=== PATIENT | male | born 1945 | race Caucasian/White ===

== ENCOUNTER → 2017-06-06 | Outpatient (CLI) | payer MEDICARE ==
[~2017-06-06] MED LIST: CIPRO 500MG TA500 MG PO; LANOXIN 0.25M0.25 MG PO; METRONIDAZOLE500 MG PO; NORCO 325 MG-51 TAB PO; NORCO 325 MG-7.1 TAB PO; ROXICODONE 55 MG/TAB PO; ULTRAM 50MG TAB50 MG PO; UROXATRAL10 M1 PO; VICODIN 5/5001 UDTAB PO; ZOFRAN4 M1 PO
== END ==
LOC: COL.RAD 14:16
DX: M25.552 Pain in left hip (principal)
CPT/HCPCS: J3301; Q9967

== ENCOUNTER → 2017-07-30 | Outpatient (CLI) | payer MEDICARE | LOC: COL.RAD 08:15 | DX: M16.12 Unilateral primary osteoarthritis, left hip (principal) | CPT/HCPCS: J3301; Q9967 ==

== ENCOUNTER 2017-09-10 04:26 | Observation (INO) | payer MEDICARE ==
[~2017-09-10] VITALS: Ht 172.7 cm; Wt 67.6 kg
[2017-09-10 04:54] LABS: HEMATOCRIT 37.9 % (42.0-52.0); HEMOGLOBIN 12.6 g/dl (13.5-18.0); MEAN CELL VOLUME 95 fl (80.0-100.0); MEAN CORPUSCULAR HEMOGLOBIN 31 pg (27.0-31.0); MEAN CORPUSCULAR HGB CONC 33 g/dl (33.0-37.0); MEAN PLATELET VOLUME 8.7 fl (7.4-10.4); PLATELET COUNT 175 K/mm3 (130-400); RED BLOOD COUNT 4.01 M/mm3 (4.20-5.60); REDCELL DISTRIBUTION WIDTH-CV 12.7 % (11.5-14.5)
[2017-09-10 05:01] LABS: PROTHROMBIN TIME 11.3 SECONDS (9.7-12.8)
[2017-09-10 05:03] LABS: PARTIAL THROMBOPLASTIN TIME 33.6 SECONDS (26.0-37.0)
[2017-09-10 05:03] LABS: ALANINE AMINOTRANSFERASE 43 U/L (21-72); ALBUMIN 3.7 gm/dL (3.5-5.0); ALKALINE PHOSPHATASE 74 U/L (50-136); ANION GAP 8 mmol/L (7-16); AST,SGOT 27 U/L (15-37); BILIRUBIN,TOTAL 0.5 mg/dL (0.0-1.0); BLOOD UREA NITROGEN 21 mg/dL (9-20); CALCIUM 8.6 mg/dL (8.4-10.2); CARBON DIOXIDE 26 mmol/L (22-30); CHLORIDE 103 mmol/L (98-107); CREATININE, serum 0.92 mg/dL (0.66-1.25); GLUCOSE 97 mg/dL (74-106); POTASSIUM 4.2 mmol/L (3.4-5.0); SODIUM 137 mmol/L (137-145); TOTAL PROTEIN 6.2 gm/dL (6.4-8.2)
[2017-09-10 05:15] LABS: BAND 10 % (0-10); BASOPHIL 1 % (0-2); LYMPHOCYTE 16 % (20.0-51.0); NEUTROPHILS 66 % (42.0-75.2)
[2017-09-10 05:16] LABS: ANISOCYTOSIS 1+; MICROCYTOSIS 1+; POLYCHROMASIA 1+
[2017-09-10 05:17] LABS: TROPONIN-I < 0.012 ng/mL (0.000-0.034)
[2017-09-10] MEDS ORDERED: ULTRAM 50MG TAB50 MG PO (09:27)
[2017-09-10] MEDS ORDERED: MOBIC15 MG PO (09:28)
[2017-09-10] MEDS ORDERED: TOPROL XL 25MG25 MG PO (09:29)
[2017-09-10 09:59] VITALS: BP 139/74; PULSE 53; TEMP 97.7
[2017-09-10 13:34] VITALS: BP 130/77; PULSE 58; TEMP 97.6
[2017-09-10 17:18] VITALS: BP 132/74; PULSE 58; TEMP 97.9
[2017-09-10 22:21] VITALS: BP 119/69; PULSE 64; TEMP 98
[2017-09-11] VITALS (8 sets, daily range): BP systolic 123–164; BP diastolic 79–93; PULSE 56–93; TEMP 97.4–98.5
[2017-09-11] MEDS ORDERED: ASPIRIN 81M81 MG/TA2 PO (14:47)
== END 2017-09-11 15:37 | disposition home or self-care (01) ==
LOC: COL.ER 04:26 → SURG 08:00
PROVIDERS: Emergency Medicine
DX: R07.9 Chest pain, unspecified (principal); I10 Essential (primary) hypertension; I08.1 Rheumatic disorders of both mitral and tricuspid valves; M54.9 Dorsalgia, unspecified; Z90.79 Acquired absence of other genital organ(s); Z96.0 Presence of urogenital implants; Z87.891 Personal history of nicotine dependence; Z82.49 Family history of ischemic heart disease and other diseases of the circulatory system; Z82.3 Family history of stroke
CPT/HCPCS: A9502; J2785; J7030

== ENCOUNTER → 2017-10-03 | Outpatient (CLI) | payer MEDICARE ==
[~2017-10-03] MED LIST changes: +ASPIRIN 81M81 MG/TA2 PO; +MOBIC15 MG PO; +TOPROL XL 25MG25 MG PO
== END ==
LOC: COL.RAD 07:48
DX: K21.0 Gastro-esophageal reflux disease with esophagitis (principal); K44.9 Diaphragmatic hernia without obstruction or gangrene; K22.8 Other specified diseases of esophagus

== ENCOUNTER → 2018-01-07 | Outpatient (CLI) | payer MEDICARE ==
[2018-01-07 11:26] LABS: HIV 1/2 Antibodies Non-Reactive; HIV-1p24 Antigen Non-Reactive
== END ==
LOC: COL.LAB 09:48
PROVIDERS: Orthopaedic Surgery
DX: Z01.812 Encounter for preprocedural laboratory examination (principal); M16.12 Unilateral primary osteoarthritis, left hip

== ENCOUNTER 2018-03-29 20:09 | Emergency (ER) | payer MEDICARE ==
[~2018-03-29] VITALS: Ht 172.7 cm; Wt 63.6 kg
[2018-03-29 21:03] LABS: BASO % 0.3 % (0.0-2.0); EOS # 0.2 (0.0-0.7); EOS % 1.3 % (0-4.0); GRAN # 10.4 (1.4-6.5); GRAN % 87.5 % (42.2-75.2); HEMATOCRIT 42.6 % (42.0-52.0); HEMOGLOBIN 14.6 g/dl (13.5-18.0); LYMPH # 0.5 (1.2-3.4); LYMPH % 4.3 % (20.0-51.0); MEAN CELL VOLUME 92 fl (80.0-100.0); MEAN CORPUSCULAR HEMOGLOBIN 32 pg (27.0-31.0); MEAN CORPUSCULAR HGB CONC 34 g/dl (33.0-37.0); MEAN PLATELET VOLUME 9.2 fl (7.4-10.4); MONO # 0.7 (0.1-0.6); MONO % 6.2 % (1.7-9.3); PLATELET COUNT 196 K/mm3 (130-400); RED BLOOD COUNT 4.61 M/mm3 (4.20-5.60); REDCELL DISTRIBUTION WIDTH-CV 12.8 % (11.5-14.5)
[2018-03-29 21:04] LABS: PROTHROMBIN TIME 11.6 SECONDS (9.7-12.8)
[2018-03-29 21:11] LABS: COLLECTION METHOD CLEAN CATCH
[2018-03-29 21:11] LABS: ALANINE AMINOTRANSFERASE 35 U/L (21-72); ALBUMIN 4.4 gm/dL (3.5-5.0); ALKALINE PHOSPHATASE 85 U/L (50-136); ANION GAP 15 mmol/L (7-16); AST,SGOT 30 U/L (15-37); BILIRUBIN,TOTAL 0.5 mg/dL (0.0-1.0); BLOOD UREA NITROGEN 21 mg/dL (9-20); CALCIUM 9.7 mg/dL (8.4-10.2); CARBON DIOXIDE 24 mmol/L (22-30); CHLORIDE 105 mmol/L (98-107); CREATININE, serum 1.06 mg/dL (0.66-1.25); GLUCOSE 122 mg/dL (74-106); LIPASE 151 U/L (23-300); POTASSIUM 3.8 mmol/L (3.4-5.0); SODIUM 144 mmol/L (137-145); TOTAL PROTEIN 7.3 gm/dL (6.4-8.2)
[2018-03-29 21:22] LABS: MUCOUS Present /lpf; PH 5 (5-8); SQUAMOUS EPITHELIAL 0-2 /hpf; URINE APPEARANCE Clear; URINE BACTERIA Rare /hpf; URINE BILIRUBIN Negative (NEGATIVE); URINE BLOOD Negative (NEGATIVE); URINE COLOR Yellow; URINE GLUCOSE Negative (NEGATIVE); URINE KETONE Trace (NEGATIVE); URINE LEUKOCYTE ESTERASE Negative (NEGATIVE); URINE NITRATE Negative (NEGATIVE); URINE PROTEIN(semi-quant) Negative (NEGATIVE); URINE UROBILINOGEN Negative (NEGATIVE)
[2018-03-29 21:27] LABS: TROPONIN-I < 0.012 ng/mL (0.000-0.034)
[2018-03-29] MEDS ORDERED: PRILOSEC10 MG PO (21:40)
[2018-03-29 22:48] VITALS: TEMP 98.1
[2018-03-30 01:30] VITALS: BP 131/77; PULSE 80
== END 2018-03-30 00:50 | disposition home or self-care (01) ==
LOC: COL.ER 20:09
PROVIDERS: Emergency Medicine
DX: R10.31 Right lower quadrant pain (principal); R10.32 Left lower quadrant pain; I10 Essential (primary) hypertension; Z87.442 Personal history of urinary calculi; Z87.891 Personal history of nicotine dependence; Z79.891 Long term (current) use of opiate analgesic
CPT/HCPCS: J2405; J3010; J7030; Q9967

== ENCOUNTER → 2020-03-17 | Outpatient (CLI) | payer MEDICARE ==
[~2020-03-17] MED LIST changes: +PRILOSEC10 MG PO
== END ==
LOC: COL.RAD 12:56
DX: M48.02 Spinal stenosis, cervical region (principal); M47.812 Spondylosis without myelopathy or radiculopathy, cervical region; G56.01 Carpal tunnel syndrome, right upper limb

== ENCOUNTER 2021-08-15 06:38 | Emergency (ER) | payer MEDICARE ==
[~2021-08-15] VITALS: Ht 172.7 cm; Wt 68.2 kg
[2021-08-15 06:46] VITALS: TEMP 97.8
[2021-08-15] MEDS ORDERED: NORCO 325 MG-51 TAB PO ×2 (06:49→07:53)
[2021-08-15] MEDS ORDERED: MOBIC15 MG PO (06:50)
[2021-08-15] MEDS ORDERED: PROTONIX 40MG T40 MG PO (06:50)
[2021-08-15 08:20] VITALS: BP 170/89; PULSE 80
== END 2021-08-15 08:20 | disposition home or self-care (01) ==
LOC: COL.ER 06:38
DX: G89.18 Other acute postprocedural pain (principal); I10 Essential (primary) hypertension; Z79.899 Other long term (current) drug therapy; Z87.891 Personal history of nicotine dependence
CPT/HCPCS: J2270

== ENCOUNTER 2022-03-21 11:07 | Inpatient (IN) | payer MEDICARE ==
[~2022-03-21] VITALS: Ht 175.3 cm; Wt 66.8 kg
[2022-03-21] VITALS (7 sets, daily range): BP systolic 141–1142; BP diastolic 72–86; PULSE 61–67; TEMP 97–97.2
[~2022-03-21 11:07] MED LIST changes: +PROTONIX 40MG T40 MG PO
[2022-03-21 12:34] LABS: BASO % 0.6 % (0.0-2.0); EOS # 0.1 K/mm3 (0.0-0.7); EOS % 1.1 % (0.0-4.0); GRAN # 6.1 K/mm3 (1.4-6.5); GRAN % 84.6 % (42.2-75.2); HEMATOCRIT 44.3 % (42.0-52.0); HEMOGLOBIN 14.8 g/dl (13.5-18.0); LYMPH # 0.5 K/mm3 (1.2-3.4); MEAN CELL VOLUME 93 fl (80.0-100.0); MEAN CORPUSCULAR HEMOGLOBIN 31 pg (27-31); MEAN CORPUSCULAR HGB CONC 33 g/dl (33.0-37.0); MEAN PLATELET VOLUME 9.6 fl (7.4-10.4); MONO # 0.4 K/mm3 (0.1-0.6); MONO % 5.9 % (1.7-9.3); PLATELET COUNT 171 K/mm3 (130-400); RED BLOOD COUNT 4.79 M/mm3 (4.20-5.60); REDCELL DISTRIBUTION WIDTH-CV 12.3 % (11.5-14.5)
[2022-03-21 12:37] LABS: ALBUMIN 3.9 gm/dL (3.4-4.8); BILIRUBIN,TOTAL 0.6 mg/dL (0.2-1.2); CALCIUM 8.9 mg/dL (8.4-10.2); CREATININE, serum 0.87 mg/dL (0.72-1.25); POTASSIUM 4.1 mmol/L (3.5-4.5); TOTAL PROTEIN 6.4 gm/dL (6.2-8.1)
[2022-03-21 12:43] LABS: TROPONIN-I 0.01 ng/mL (0.00-0.033)
[2022-03-21 13:00] LABS: COLLECTION METHOD CLEAN CATCH
[2022-03-21 13:10] LABS: PROTHROMBIN TIME 11.3 SECONDS (9.7-12.8)
[2022-03-21 13:13] LABS: PARTIAL THROMBOPLASTIN TIME 42.7 SECONDS (26.0-37.0)
[2022-03-21 13:23] LABS: MUCOUS Present (NOT PRESENT); PH 6 (5-8); SQUAMOUS EPITHELIAL 0-2 /hpf (0-10); URINE APPEARANCE Clear (CLEAR/HAZY); URINE BACTERIA None Seen /hpf (NONE SEEN); URINE BILIRUBIN Negative (NEGATIVE); URINE BLOOD Negative (NEGATIVE); URINE COLOR Yellow (YELLOW); URINE GLUCOSE Negative (NEGATIVE); URINE KETONE Negative (NEGATIVE); URINE LEUKOCYTE ESTERASE Negative (NEGATIVE); URINE NITRATE Negative (NEGATIVE); URINE PROTEIN(semi-quant) Negative (NEGATIVE); URINE RBC 0-2 /hpf (0-2); URINE UROBILINOGEN Negative (NEGATIVE)
--- NOTE | 2022-03-21 16:40 | NUR ---
PT ARRIVED TO ROOM FROM ED @ THIS TIME VIA WC.
[2022-03-21] MEDS ORDERED: ALEVE LIQCAPS (16:48)
[2022-03-21] MEDS ORDERED: MAGNESIUM250 M1 PO (16:50)
[2022-03-21] MEDS ORDERED: VITAMINC500CH (16:51)
[2022-03-21] MEDS ORDERED: DUO-KAPS1 CAP PO (16:52)
--- NOTE | 2022-03-21 17:09 | NUR ---
PT TAKEN TO SURGERY @ THIS TIME. PRE-OP IVF INFUSING TP LEFT AC IV, CONSENT HAS BEEN SIGNED. PT STATES THAT PAIN IS MINIMAL @ THIS TIME R/T MEDS GIVEN IN ED. PT'S SPOUSE IS @ BEDSIDE, IS GOING TO WAIT IN SURGERY WAITING AREA.
--- NOTE | 2022-03-21 19:15 | NUR ---
Pt. to the floor from PACU. Pt. is A&OX3. IV to lt. ac patent. Pt. denies pain. VSS. Pt. denies further needs, call light within reach.
[2022-03-22 00:41] VITALS: BP 129/73; PULSE 68; TEMP 97.6
[2022-03-22 07:48] VITALS: BP 146/81; PULSE 66; TEMP 98
[2022-03-22 08:55] LABS: BASO % 0.2 % (0.0-2.0); GRAN # 9.8 K/mm3 (1.4-6.5); GRAN % 89.8 % (42.2-75.2); HEMATOCRIT 43.1 % (42.0-52.0); HEMOGLOBIN 14.3 g/dl (13.5-18.0); LYMPH # 0.4 K/mm3 (1.2-3.4); LYMPH % 3.7 % (20.0-51.0); MEAN CELL VOLUME 93 fl (80.0-100.0); MEAN CORPUSCULAR HEMOGLOBIN 31 pg (27-31); MEAN CORPUSCULAR HGB CONC 33 g/dl (33.0-37.0); MEAN PLATELET VOLUME 9.6 fl (7.4-10.4); MONO # 0.6 K/mm3 (0.1-0.6); MONO % 5.8 % (1.7-9.3); PLATELET COUNT 183 K/mm3 (130-400); RED BLOOD COUNT 4.64 M/mm3 (4.20-5.60); REDCELL DISTRIBUTION WIDTH-CV 12.5 % (11.5-14.5)
--- NOTE | 2022-03-22 09:23 | NUR ---
Laundry Supervisor met with patient to discuss discharge planning. Patient lives in [place] with his , Amanda (ph#[phone]) and sees Dr. Vaca for primary care. Patient obtains medications from [employer] with no difficulties and does not use any DME normally, although he reported he has a cane from when he had hip surgery a few years ago. Patient is independent with ADLS and is employed at [employer] in [facility]. Patient does not have Advance Directives. Patient plans to return home at time of discharge. Discharge Plan: Home
[2022-03-22 09:29] LABS: CALCIUM 8.7 mg/dL (8.4-10.2); POTASSIUM 4.5 mmol/L (3.5-4.5)
[2022-03-22 09:49] LABS: CREATININE, serum 0.87 mg/dL (0.72-1.25)
--- NOTE | 2022-03-22 11:31 | NUR ---
Sparkle: No muslim preference Situation: Manager Adult stopped by room on rounds Background: PT was resting and content Assessment: PT appreciated the visit Recommendation: Manager Adult will follow up as needed
[2022-03-22 11:53] VITALS: BP 154/81; PULSE 66; TEMP 98.6
[2022-03-22] MEDS ORDERED: ROXICODONE 55 MG/TAB PO (15:11)
--- NOTE | 2022-03-22 17:10 | NUR ---
PT DISCHARGED TO HOME WITH SPOUSE @ THIS TIME, AMBULATES TO PRIVATE VEHICLE ACCOMPANIED BY GHANSHYAM CHUA. PT ET SPOUSE GIVEN DC EDUCATION ET INSTRUCTIONS, DENY QUESTIONS. PT HAS BEEN UP ET AMBULATING IN HALLWAY, TOLERATES WELL ET GAIT IS STEADY. BANDAIDS ARE INTACT TO 4 ABDOMINAL LAP SITES. PT STATES THAT PAIN IS MINIMAL ET TOLERABLE, RATES 4/10. SCHEDULED TYLENOL HAS BEEN GIVEN. PT HAD EATEN LUNCH ET TOELRATED WELL, STATED THAT HE WAS VERY HUNGRY.
== END 2022-03-22 15:55 | disposition home or self-care (01) | DRG 336 ==
LOC: COL.ER 11:07 → SURG 15:32
PROVIDERS: Emergency Medicine; ADMIT Surgery
PROC: 0DNU4ZZ Release Omentum, Percutaneous Endoscopic Approach (ICD-10-PCS; 2022-03-21)
PROC: 8E0W4CZ Robotic Assisted Procedure of Trunk Region, Percutaneous Endoscopic Approach (ICD-10-PCS; 2022-03-21)
PROC: 4A1BXSH Monitoring of Gastrointestinal Vascular Perfusion using Indocyanine Green Dye, External Approach (ICD-10-PCS; 2022-03-21)
PROC: 0DN84ZZ Release Small Intestine, Percutaneous Endoscopic Approach (ICD-10-PCS; principal; 2022-03-21 16:45)
PROC: 0DJD4ZZ Inspection of Lower Intestinal Tract, Percutaneous Endoscopic Approach (ICD-10-PCS; 2022-03-21 16:45)
DX: K56.609 Unspecified intestinal obstruction, unspecified as to partial versus complete obstruction (principal); K55.9 Vascular disorder of intestine, unspecified; K21.9 Gastro-esophageal reflux disease without esophagitis; M19.90 Unspecified osteoarthritis, unspecified site; I10 Essential (primary) hypertension; D72.829 Elevated white blood cell count, unspecified; Z87.442 Personal history of urinary calculi; Z90.79 Acquired absence of other genital organ(s); Z88.8 Allergy status to other drugs, medicaments and biological substances; Z87.891 Personal history of nicotine dependence; Z23 Encounter for immunization
CPT/HCPCS: A4314; J0690; J1100; J1650; J1885; J2270; J2405; J2704; J3010; J7030; Q9967